=== PATIENT | male | born 2000 | race Caucasian/White ===

== ENCOUNTER 2022-10-26 09:38 | Emergency (ER) | payer BC, SELFPAY ==
[2022-10-26 09:51] VITALS: BP 115/82; PULSE 68; RESP 16; TEMP 36.3; O2SAT 100
--- NOTE | 2022-10-26 10:07 | ED.SKABFB ---
HPI - Skin/Abscess/Foreign Bdy General Chief complaint: Skin/Abscess/Foreign Body Stated complaint: BUMP ON BACK Time Seen by Provider: 10/26/22 09:55 Source: patient Mode of arrival: ambulatory Limitations: no limitations History of Present Illness HPI narrative: 22 yo M presents today with c/o lump to R upper back. States he noticed 5 days ago while putting on his shirt. States felt weird . No pain, redness, warmth, drainage. Does not have a PCP. All systems reviewed and negative except as noted above. Related Data Home Medications Medication Instructions Recorded Confirmed No Home Medications 10/26/22 10/26/22 Allergies Allergy/AdvReac Type Severity Reaction Status Date / Time No Known Allergies Allergy Verified 10/26/22 09:48 Review of Systems Review of Systems: CONSTITUTIONAL: Denies fever, chills, or sweats. EYES: Denies visual changes, redness, or discharge. ENT: Denies rhinorrhea, congestion, sore throat, or otalgia. CARDIOVASCULAR: Denies chest pain, palpitations, or edema. RESPIRATORY: Denies cough or dyspnea. GASTROINTESTINAL: Denies abdominal pain, nausea, vomiting, or diarrhea. GENITOURINARY: Denies dysuria or hematuria. SKIN: Denies rash or itching. report lump to R upper back MUSCULOSKELETAL: Denies back pain, joint pain, or myalgia. NEUROLOGIC: Denies headache, numbness, or weakness. PSYCHIATRIC: Denies anxiety or depression. All other systems reviewed are negative, except as documented in HPI. PMFSH Comments At time of signature, agree with nursing past medical, surgical, social and family history. There is no relevant family history pertinent to the presenting complaint. Exam Narrative: GENERAL: This is a well-nourished, well-developed patient, in no apparent distress. HEAD: normocephalic, atraumatic. EYES: PERRL. Sclera clear/white. Vision is grossly intact. EARS: External ears normal NOSE: External nose normal NECK: Neck supple, non-tender without lymphadenopathy, masses or thyromegaly. CARDIOVASCULAR: Regular rate and rhythm without murmurs, gallops, or rubs. RESPIRATORY: Clear to auscultation. Breath sounds equal bilaterally. No wheezes, rales, or rhonchi. SKIN: warm, Dry, intact with no suspicious lesions or rash, good texture and turgor. lump felt to R upper back over scapula approx. 8cm diameter. movable, nontender. no redness, warmth, drainage or fluctuance. NEURO: awake, alert, and oriented to person, place and time. There were no obvious focal neurologic abnormalities. EXTREMITIES: No joint tenderness, effusion, or edema noted. Course Course Level of Care: Express Care Visit Vital Signs Vital signs: Vital Signs Temperature 36.3 C L 10/26/22 09:51 Pulse Rate 68 10/26/22 09:51 Respiratory Rate 16 10/26/22 09:51 Blood Pressure 115/82 10/26/22 09:51 Pulse Oximetry 100 10/26/22 09:51 Temperature 36.3 C L 10/26/22 09:51 Pulse Rate 68 10/26/22 09:51 Respiratory Rate 16 10/26/22 09:51 Blood Pressure 115/82 10/26/22 09:51 Pulse Oximetry 100 10/26/22 09:51 reviewed MDM - Skin/Abscess/Foreign Bdy MDM Narrative Medical decision making narrative: Patient is aware of diagnosis, understands and agrees to treatment plan. Anticipatory guidance given. Patient agrees to follow-up as directed and is aware of reasons to seek care at the emergency department. Portions of this record may have been created with voice recognition software most likely fatty lipoma to R upper back but recommend pt follow up with a PCP for further evaluation and possible imaging Discharge Plan Discharge Clinical Impression: Lump of skin of back Patient Disposition: Home, Self-Care Condition: Stable Instructions: General Patient Instructions Additional Instructions: Follow up with a primary care physician for further evaluation of lump felt to right upper back. This will need to be further evaluated with ultrasound, CT or MRI imaging. T
== END 2022-10-26 10:03 | disposition home or self-care (01) ==
PROVIDERS: Emergency Provider Nurse Practitioner Family
DX: R22.2 Localized swelling, mass and lump, trunk (principal)
CPT/HCPCS: 99211; G0463

== ENCOUNTER 2024-10-29 10:28 | Emergency (ER) | payer BC, SELFPAY ==
[2024-10-29 10:42] VITALS: BP 145/85; PULSE 85; RESP 16; TEMP 36.6; O2SAT 100
--- NOTE | 2024-10-29 10:43 | ED_ITS ---
HPI - Wound/Laceration General Chief Complaint: Wound/Laceration Stated Complaint: Stitches Time Seen by Provider: 10/29/24 10:43 Source: patient Mode of arrival: ambulatory Limitations: no limitations History of Present Illness HPI narrative: 24 y/o male presented with laceration to the left inner eyebrow, sustained last night at 11pm. States he collided with another player's head while playing basketball. Says he cleaned it with hydrogen peroxide, applied a bandaid and continued to play. Later last night he applied some skin glue but says it continued to bleed. Denies headache or vision changes Related Data Home Medications ?Medication ?Instructions ?Recorded ?Confirmed ?Last Taken ?Type No Home Medications 10/26/22 10/29/24 Unknown History Allergies Allergy/AdvReac Type Severity Reaction Status Date / Time No Known Allergies Allergy Verified 10/29/24 10:43 Review of Systems Review of Systems: CONSTITUTIONAL: Denies body aches, fever, chills, or sweats. EYES: Denies visual changes, redness, or discharge. ENT: Denies rhinorrhea, congestion CARDIOVASCULAR: Denies chest pain, palpitations, or edema. RESPIRATORY: Denies cough or dyspnea. GASTROINTESTINAL: Denies abdominal pain, nausea, vomiting, or diarrhea. SKIN: reports laceration MUSCULOSKELETAL: Denies back pain, joint pain, or myalgia. NEUROLOGIC: Denies headache, numbness, tingling, or weakness. PMFSH Comments At time of signature, I have reviewed and agree with nursing past medical, surgical, social and family history unless otherwise noted. Please see nursing chart for further information. There is no relevant family history pertinent to the presenting complaint Exam Narrative: GENERAL: Well-appearing HEAD: Normocephalic, atraumatic. EYES: conjunctivae clear, and EOMI. ENT: Mucous membranes moist. Oropharynx without edema, erythema or lesions. NECK: Supple. No lymphadenopathy CHEST: Clear to auscultation. HEART: Regular rate and rhythm. SKIN: Warm, dry. Left medial eyebrow with 1cm linear laceration, no active bleeding. NEURO: Alert and oriented x3. Course Course Emergency Course: Patient is aware of diagnosis, understands and agrees to treatment plan. Anticipatory guidance given. Patient agrees to follow-up as directed and is aware of reasons to seek care at the emergency department. Portions of this record may have been created with voice recognition software Level of Care: Express Care Visit Vital Signs Vital signs: Vital Signs Temperature 98 F 10/29/24 10:42 Pulse Rate 85 10/29/24 10:42 Respiratory Rate 16 10/29/24 10:42 Blood Pressure 145/85 H 10/29/24 10:42 Pulse Oximetry 100 10/29/24 10:42 Temperature 98 F 10/29/24 10:42 Pulse Rate 85 10/29/24 10:42 Respiratory Rate 16 10/29/24 10:42 Blood Pressure 145/85 H 10/29/24 10:42 Pulse Oximetry 100 10/29/24 10:42 Reviewed Procedures Laceration left eyebrow: Depth: simple, single layer Pre-repair: irrigated (skintegrity and sterile water) ====== Skin Level ====== Skin layer closed with: dermabond and steri strips ====== Subcutaneous Layer ====== ====== Muscle Layer ====== ====== Tendon Layer ====== MDM - Wound/Laceration MDM Narrative Medical decision making narrative: Discussed physical exam findings; tolerated dermabond and steri strips to the left eyebrown laceration; edges approximated. Pt states he works outside, he is advised heavy perspiration may loosen the skin adhesive. Advised supportive measures and signs/symptoms to go to the ER. Pt is appropriate for outpt treatment and f/u. Differential Diagnosis Differential diagnosis: Likely laceration, abrasion and avulsion of skin Discharge Plan Discharge Clinical Impression: Laceration Patient Disposition: Home Condition: Stable Instructions: Antibiotic Form, Laceration (ED), Skin Adhesive Strips (ED) Additional Instructions: The glue film will fall off in 5 to 10 days Steri-Strips will roll off on their own within 14 days, you can trim the edges as needed Do not soak your wound. Avoid frequent or prolonged contact with water, including heavy perspiration. This may loosen the skin glue before the wound is healed. Keep the area clean and dry - cleanse with warm water and mild soap and allow to fully dry. Tetanus updated today. Watch for worsening symptoms including pain, redness, swelling, streaking, pus/drainage, fever. Go to the ER with any of these symptoms or concerns. Follow up with primary care provider in 1 week as needed. Patient Language: [place]an Prescriptions: No Action No Home Medications Follow-up/Referrals: PHYSICIAN,ROLL TRUCKER [Primary Care Provider] - Time of Disposition: 11:03
[2024-10-29] MEDS: TETANUS,DIPHTHERIA,AC PERTUSSIS ADULT (0.5 ML) BOOSTRIX IM (11:01)
== END 2024-10-29 11:10 | disposition home or self-care (01) ==
PROVIDERS: Emergency Provider Nurse Practitioner Family
DX: S01.112A Laceration without foreign body of left eyelid and periocular area, initial encounter (principal); W51.XXXA Accidental striking against or bumped into by another person, initial encounter; Y93.67 Activity, basketball; Z23 Encounter for immunization
CPT/HCPCS: 12011; 90471; 90715; 99212; G0463